=== PATIENT | female | born 1995 | race African-American/Black ===

== ENCOUNTER 2023-02-21 20:52 | Emergency (ER) | payer BC, SELFPAY ==
[2023-02-21 20:55] VITALS: BP 190/121; PULSE 110; RESP 18; TEMP 36.7; O2SAT 100
[2023-02-21 21:08] VITALS: BP 154/90
[2023-02-21 21:15] VITALS: RESP 18
--- NOTE | 2023-02-21 21:28 | ED.GENADUL_ITS ---
Discharge Plan Disposition Patient Disposition: Home Discharge Details Clinical Impression: Azotemia, Myalgia, Elevated CPK, Viral illness Primary Care Provider: Unknown,Unknown ED Provider: Isatu Byrne Discharge Instructions Instructions: Viral Syndrome (ED), Musculoskeletal Pain (ED) Additional Instructions: drink at least 8, 8oz glasses of water daily to clear your elevated cpk levels this can occur with viral illness, recommend recheck of your levels and creatinine in 24-48 hours with pcp tylenol as needed for pain your tick panel and blood cultures are pending and we will call you in the next 4-5 days if the results are positive Medical Decision Making This 27-year-old female presents with myalgias fevers, sore throat and intermittent headache Given vitals, age, history I did order extensive evaluation including blood cultures procalcitonin which was negative Tick panel is pending Interestingly patient has mild rhabdomyolysis, 652, will give 2 L of IV hydration and have patient push fluids at home with close outpatient reassessment, recommendation for recheck in 24 to 48 hours She is afebrile and nontoxic and very well in appearance on assessment. Laboratory markers are negative and urinalysis does not show evidence of acute abnormality, chest x-ray without pneumonia, I suspect rhabdo secondary to acute viral illness Creatinine of 1.4, no comparison, encouraged increased hydration, no meningismus, no rashes or lesions Requesting discharge home, nontoxic in appearance, return precautions reviewed and patient expressed understanding HPI General Date/Time Provider Initiated Documentation: 02/21/23 20:53 . HPI Narrative: This 27-year-old female with history of gastric bypass and cholecystectomy presents with report of intermittent fevers, Tmax of 100.4 over the course of the past 3 weeks. Daughter was sick with similar presentation and it did not e xtend for the same period of time. Denies cough. States she has myalgias. She has had some anorexia with out vomiting. Denies diarrhea. Had tick bites this summer but denies any recent tick bites. Denies any chest discomfort. Last fever was on per patient. Denies rashes or lesions or joint pain. Denies any antipyretics prior to arrival. Related Data Allergies Allergy/AdvReac Type Severity Reaction Status Date / Time No Known Allergies Allergy Unverified 02/21/23 21:04 General Stated Complaint: GenMedical LAURE: 3 PFSH All Active Problems (Updated 02/21/23 @ 23:02 by FAVIAN Thomson) Viral illness (Acute) Elevated CPK (Acute) Myalgia (Acute) Azotemia (Acute) Social History Smoking/Tobacco Use Status: Current-Occasional Smoking risk assessment performed?: Yes Alcohol Intake: never Substance use type: marijuana Do you feel safe at home: Yes Do you feel safe in your relationship?: Yes Course Vital Signs Vital signs: Vital Signs Temperature 36.7 C 02/21/23 20:55 Pulse 110 H 02/21/23 20:55 Respiratory Rate 18 02/21/23 20:55 Blood Pressure 190/121 H 02/21/23 20:55 Pulse Oximetry 100 02/21/23 20:55 Temperature 36.7 C 02/21/23 20:55 Temperature Source Oral 02/21/23 20:55 Pulse 110 H 02/21/23 20:55 Respiratory Rate 18 02/21/23 21:15 Respiratory Effort Normal 02/21/23 21:15 Respiratory Depth Normal 02/21/23 21:15 Respiratory Pattern Normal 02/21/23 21:15 Blood Pressure 154/90 H 02/21/23 21:08 Blood Pressure Position Sitting 02/21/23 20:55 Pulse Oximetry 100 02/21/23 20:55 Oxygen Delivery Method Room Air 02/21/23 20:55 Oxygen Flow Rate 0 02/21/23 20:55 Lab/Test Results Lab/Test Results: 02/21/23 21:25 Blood Blood Culture - Pending 02/21/23 21:25 Blood Blood Culture - Pending
[2023-02-21] MEDS: ACETAMINOPHEN 1,000 MG/100 ML BTL 400 MG IVPB (21:38)
[2023-02-21] MEDS: Lactated Ringers 1,000 ML 1000 ML IV (21:56)
[2023-02-21 21:59] LABS: Absolute Basophil Count 0.02 10^3/uL (0.0-0.2); Absolute Eosinophil Count 0.03 10^3/uL (0.0-0.7); Absolute Monocyte Count 0.41 10^3/uL (0.1-0.8); Basophils % 0.3; Eosinophils % 0.5; HCT 40.3 % (36.0-46.0); HGB 13.1 g/dL (11.2-15.7); Lymphocytes % 43.1; MCH 27.9 pg (27.0-33.0); MCHC 32.5 % (32.0-36.0); MCV 86 fL (80-95); MPV 8.4 fL (8.0-11.0); Monocytes % 6.5; Neutrophils % 49.6; Platelet Count 343 10^3/uL (130-400); RDW 12.2 % (11.7-14.6); RDW-SD 38.7 fL; WBC 6.26 10^3/uL (4.4-10.8)
[2023-02-21 22:01] LABS: ESR 8 mm/hr (0-20)
[2023-02-21 22:05] LABS: Mono Screening Negative (Negative)
[2023-02-21 22:21] LABS: ALT 29 U/L (14-59); AST 30 U/L (15-37); Albumin 5.1 g/dL (3.4-5.0); Alkaline Phosphatase 71 U/L (46-116); BUN 16 mg/dL (7-18); Bilirubin, Total 0.8 mg/dL (0.2-1.0); CREATININE 1.4 mg/dL (0.55-1.02); Calcium 10.1 mg/dL (8.5-10.1); Chloride 101 mmol/L (98-107); Creatine Kinase 652 U/L (26-192); Estimated GFR 52.88 (mL/min/1.73m2); Glucose 84 mg/dL (74-106); Potassium 3.5 mmol/L (3.5-5.1); Sodium 140 mmol/L (136-145); Total Protein 8.8 g/dL (6.4-8.2)
[2023-02-21 22:22] LABS: C-Reactive Protein < 0.05 mg/dL (0.0-0.3)
[2023-02-21 22:33] LABS: Bilirubin Negative (Negative); Blood Trace-intact (Negative); Clarity Clear (Clear); Glucose Negative (Negative); Ketones Trace mg/dL (Negative); Leukocyte Esterase Negative (Negative); Nitrite Negative (Negative); Urobilinogen 0.2 mg/dL (Up to 0.2)
--- NOTE | 2023-02-21 22:36 | DI.RAD_ITS ---
Exam(s) XR CHEST 2V PA LATERAL EXAM: XR CHEST 2V PA LATERAL CLINICAL HISTORY: fever TECHNIQUE: 2D digital imaging was performed of the chest. Two images were obtained. PA and lateral views were obtained. COMPARISON: No exams were available for comparison FINDINGS: MEDIASTINUM: Normal. HEART: Normal. PULMONARY VASCULATURE: Normal. LUNGS: The lungs are hyperinflated which may be related to strong inspiratory effort or possible parker ges of asthma/bronchiolitis. No focal consolidations are seen. PLEURAL SPACE: No pleural effusion or pneumothorax. BONE:Within normal limits for the patient's age. OTHER FINDINGS:There are surgical clips in the left upper quadrant of the abdomen. IMPRESSION: Hyperexpansion of the lungs. This may be due to a strong inspiratory effort versus changes of asthma or bronchiolitis. No pulmonary infiltrates. DATA REPOSITORY: RADIATION DOSE DELIVERED:
[2023-02-21 22:37] LABS: COVID-19 PCR Negative (Negative); Influenza A PCR Negative (Negative); Influenza B PCR Negative (Negative); RSV PCR Negative (Negative); Source NASOPHARYNX
[2023-02-21 22:42] LABS: WBC Negative HPF (0-5)
[2023-02-21 22:43] LABS: Bacteria Rare HPF (Negative); C & S Indicated? No; Casts Negative LPF (Negative); Crystals Negative HPF (Negative); Epithelial Cells Few HPF (Negative); Mucus Trace (Negative); RBC 0-2 HPF (0-2)
[2023-02-21 22:48] LABS: Procalcitonin < 0.1 ng/mL
[2023-02-21 22:55] LABS: TSH 2.36 uIU/mL (0.36-3.74)
--- NOTE | 2023-02-21 23:15 | DI.VRAD_ITS ---
PROCEDURE INFORMATION: Exam: XR Chest Exam date and time: 02/21/2023 10:33 PM Age: 27 years old Clinical indication: Other: Fever TECHNIQUE: Imaging protocol: Radiologic exam of the chest. Views: 2 views. COMPARISON: No relevant prior studies available. FINDINGS: Lungs: Question mild generalized hyperexpansion and diaphragmatic flattening which may relate to strong inspiratory effort or possibly mild changes of asthma/bronchiolitis. Pulmonary vasculature grossly normal. No gross pulmonary infiltrates or edema pattern. Pleural spaces: No pleural effusion. Appearance of bilateral costophrenic angle blunting is felt to be related to hyperexpansion. No pneumothorax. Heart/Mediastinum: Heart size normal. No tracheal/mediastinal shift. Bones/joints: No acute osseous abnormalities are identified. Intraperitoneal space: Left upper quadrant surgical clips in the abdomen. IMPRESSION: Nonspecific hyperexpansion, strong inspiratory effort versus changes of asthma/bronchiolitis. No gross pulmonary infiltrates. Dictated and Authenticated by: Chad Luu MD. Ordering:DEREJE Lunsford MD
[2023-02-21 23:35] VITALS: BP 145/105; PULSE 104; RESP 14; O2SAT 100
[2023-02-23 11:38] LABS: Lyme Ab w Rflx to Lyme Confirm Negative (Negative)
[2023-02-25 00:07] LABS: Anaplasma phagocytophilum Negative (Negative); B. miyamotoi PCR Negative (Negative); Babesia divergens/MO-1 Negative (Negative); Babesia duncani Negative (Negative); Babesia microti Negative (Negative); Ehrlichia chaffeensis Negative (Negative); Ehrlichia ewingii/canis Negative (Negative); Ehrlichia muris eauclairensis Negative (Negative)
== END 2023-02-21 23:37 | disposition home or self-care (01) ==
PROVIDERS: Emergency Provider Physician Assistant; PCP Physician Assistant
DX: R51.9 Headache, unspecified; R79.89 Other specified abnormal findings of blood chemistry; M79.10 Myalgia, unspecified site; R94.4 Abnormal results of kidney function studies; Z98.84 Bariatric surgery status; B34.9 Viral infection, unspecified; Z90.49 Acquired absence of other specified parts of digestive tract; M62.82 Rhabdomyolysis
CPT/HCPCS: 36415; 80053; 81025; 82550; 84145; 85652; 87040; 87637; 87798; 87880; 96365; 96366; 99284; 71046; 81003; 81015; 83735; 84443; 85025; 86140; 86308; 86618; J0131

== ENCOUNTER 2023-05-10 14:24 | Outpatient (REF) | payer BC, SELFPAY | END 2023-05-10 14:25 | disposition home or self-care (01) | LOC: LBN 14:24 | PROVIDERS: PCP Nurse Practitioner Family; Visit Provider Nurse Practitioner Family | DX: R30.0 Dysuria (principal); N89.8 Other specified noninflammatory disorders of vagina | CPT/HCPCS: 87480; 87510; 87660 ==

== ENCOUNTER 2023-06-20 13:49 | Outpatient (REF) | payer BC, SELFPAY | END 2023-06-20 13:50 | disposition home or self-care (01) | LOC: LBN 13:49 | PROVIDERS: Visit Provider Physician Assistant | DX: J02.9 Acute pharyngitis, unspecified (principal) | CPT/HCPCS: 87070 ==

== ENCOUNTER 2023-06-27 05:01 | Outpatient (CLI) | payer BC, SELFPAY ==
[2023-06-27 15:07] LABS: Panorama Kit Sent via Fed Ex
[2023-06-27 15:24] LABS: Abs Immature Grans 0.02 10^3/uL (0.0-0.06); Absolute Basophil Count 0.01 10^3/uL (0.0-0.2); Absolute Eosinophil Count 0.03 10^3/uL (0.0-0.7); Absolute Lymphocyte Count 2.15 10^3/uL (1.2-3.4); Absolute Monocyte Count 0.48 10^3/uL (0.1-0.8); Absolute Neutrophil Count 4.77 10^3/uL (1.2-6.7); Basophils % 0.1; Eosinophils % 0.4; HCT 34.7 % (36.0-46.0); HGB 11.5 g/dL (11.2-15.7); Immature Grans % 0.3; Lymphocytes % 28.8; MCH 27.7 pg (27.0-33.0); MCHC 33.1 % (32.0-36.0); MCV 84 fL (80-95); MPV 8.3 fL (8.0-11.0); Monocytes % 6.4; Platelet Count 362 10^3/uL (130-400); RBC 4.15 10^6/uL (3.93-5.22); RDW 11.8 % (11.7-14.6); RDW-SD 36.1 fL; WBC 7.46 10^3/uL (4.4-10.8)
[2023-06-27 16:23] LABS: ALT 43 U/L (14-59); AST 29 U/L (15-37); Albumin 3.3 g/dL (3.4-5.0); Alkaline Phosphatase 57 U/L (46-116); Anion Gap 7.8 mmol/L (3-11); BUN 13 mg/dL (7-18); Bilirubin, Total 0.7 mg/dL (0.2-1.0); CO2 28.2 mmol/L (21.0-32.0); CREATININE 0.7 mg/dL (0.55-1.02); Calcium 9.1 mg/dL (8.5-10.1); Chloride 101 mmol/L (98-107); Estimated GFR 121.49 (mL/min/1.73m2); Glucose 80 mg/dL (74-106); Potassium 4.1 mmol/L (3.5-5.1); Sodium 137 mmol/L (136-145); Total Protein 6.9 g/dL (6.4-8.2)
[2023-06-28 09:09] LABS: Hepatitis B Surface Ag Negative (Negative)
[2023-06-28 09:56] LABS: HIV-1/2 Ag & Ab Screen Negative (Negative)
[2023-06-28 10:10] LABS: Hepatitis C Ab w Rflx HCV PCR Negative (Negative)
[2023-06-28 11:07] LABS: Rubella IgG Ab (UVM) Positive (See Note); Varicella IgG Antibody Positive (See Note)
[2023-06-29 14:21] LABS: Syphilis IgG w/Reflex Nonreactive (Nonreactive)
[2023-07-02 00:21] LABS: Specimen WB Whole Blood
[2023-07-07 14:55] LABS: Result Summary NEGATIVE; Specimen WB Whole Blood
== END 2023-06-27 05:02 | disposition home or self-care (01) ==
LOC: LBO 05:01
PROVIDERS: Visit Provider Advanced Practice Midwife
DX: Z34.91 Encounter for supervision of normal pregnancy, unspecified, first trimester (principal); Z98.84 Bariatric surgery status
CPT/HCPCS: 36415; 80053; 81220; 81222; 81329; 86787; 86803; 86850; 86900; 86901; 87340; 87389; 85025; 86762; 86780

== ENCOUNTER 2023-06-27 14:40 | Outpatient (REF) | payer BC, SELFPAY ==
--- NOTE | 2023-06-27 14:30 | PAPFT_PTH ---
PATIENT: Yvette Self LOC: [facility] U#:[id number] AGE/SX: 27/F ROOM: RE06/27/[address]: Martha Mims : 1995 BED: DIS: 06/27/2023 SPEC #: [id number] RECD: 06/27/23 18:21 STATUS: JARED REQ #: [id number] BONG: 06/27/23 14:[address]: Martha Mims [facility] Cytology RECD BY: Isatu Pelayo ENTERED: 06/27/23 18:21 SP TYPE: PAPFT OT DR: Unknown,Unknown Tissues: 1 - CX/ENDOCX FOR PAP SMEARS Procedures: PAP THIN PREP/UVM Screening Comments: [id number]
[2023-06-29 14:36] LABS: Chlamydia Result Negative (Negative); GC Result Negative (Negative)
== END 2023-06-27 14:41 | disposition home or self-care (01) ==
LOC: LBN 14:40
PROVIDERS: Visit Provider Advanced Practice Midwife
DX: Z34.91 Encounter for supervision of normal pregnancy, unspecified, first trimester (principal); Z12.4 Encounter for screening for malignant neoplasm of cervix
CPT/HCPCS: 87491; 87591; 88142; 87086

== ENCOUNTER 2023-07-25 15:19 | Outpatient (CLI) | payer BC, SELFPAY ==
[2023-07-25 14:22] LABS: HCT 35.9 % (36.0-46.0); HGB 11.4 g/dL (11.2-15.7); MCH 27.6 pg (27.0-33.0); MCHC 31.8 % (32.0-36.0); MCV 87 fL (80-95); MPV 8.8 fL (8.0-11.0); Platelet Count 284 10^3/uL (130-400); RBC 4.13 10^6/uL (3.93-5.22); RDW 12.3 % (11.7-14.6); RDW-SD 39.8 fL; WBC 6.59 10^3/uL (4.4-10.8)
[2023-07-25 15:03] LABS: Iron 146 ug/dL (50-170); Total Iron Binding Capacity 364 ug/dL (250-450)
[2023-07-25 15:15] LABS: Calcium 8.6 mg/dL (8.5-10.1); Ferritin 35 ng/mL (8-252)
[2023-07-25 15:27] LABS: Vitamin D 25 Total 33.4 ng/mL (30-100)
== END 2023-07-25 15:20 | disposition home or self-care (01) ==
PROVIDERS: Visit Provider Advanced Practice Midwife
DX: Z98.84 Bariatric surgery status (principal)
CPT/HCPCS: 36415; 82306; 85027; 82310; 82728; 83540; 83550

== ENCOUNTER 2023-10-18 02:49 | Outpatient (CLI) | payer BC, SELFPAY ==
[2023-10-18 11:14] LABS: HCT 31.8 % (36.0-46.0); MCH 27.1 pg (27.0-33.0); MCHC 31.4 % (32.0-36.0); MCV 86 fL (80-95); Platelet Count 264 10^3/uL (130-400); RBC 3.69 10^6/uL (3.93-5.22); RDW 11.9 % (11.7-14.6); RDW-SD 37.3 fL
[2023-10-18 12:08] LABS: Glucose,1 Hr (Glucola) 57 mg/dL (80-140)
[2023-10-18 12:12] LABS: Iron 79 ug/dL (50-170); Total Iron Binding Capacity 490 ug/dL (250-450)
[2023-10-18 12:25] LABS: Calcium 8.8 mg/dL (8.5-10.1); Ferritin 16 ng/mL (8-252)
== END 2023-10-18 02:50 | disposition home or self-care (01) ==
LOC: LBO 02:49
PROVIDERS: PCP Physician Assistant; Visit Provider Advanced Practice Midwife
DX: Z98.84 Bariatric surgery status (principal); Z34.90 Encounter for supervision of normal pregnancy, unspecified, unspecified trimester; D57.3 Sickle-cell trait
CPT/HCPCS: 36415; 82950; 85027; 82310; 82728; 83540; 83550

== ENCOUNTER → 2023-11-14 01:07 | Outpatient (CLI) | payer BC, SELFPAY ==
--- NOTE | 2023-11-14 07:22 | DI.US_ITS ---
Exam(s) US OB ROQUE WEIGHT EXAM: US OB ROQUE WEIGHT CLINICAL HISTORY: growth and ROQUE,H/O GASTRIC BYPASS,Z98.84. TECHNIQUE: Transabdominal obstetrical ultrasound was performed. COMPARISON: US US OB 2-3 TRIMESTER from 08/22/2023 FINDINGS: There is a single viable intrauterine gestation with cardiac activity identified-150 bpm The fetus is presently in cephalic position . Amniotic fluid: There is a normal amount of amniotic fluid with an ROQUE of 16.4cm. Placental location: The placenta is anterior grade 2,with no evidence of placenta previa. Dating parameters place this at approximately 31 weeks gestational age, implying ESTHELA of . BPD measures 29 weeks and 5 days HC measures 32 weeks and 0 days AC measures 31 weeks and 3 days FL measures 30 weeks and 4 days Estimated weight is 1687 gm-3 pounds 12 ounces Fetus is at the 39th percentile on the Hadlock scale. IMPRESSION:: Viable 3rd trimester gestation, as described above. DATA REPOSITORY:
== END ==
PROVIDERS: PCP Physician Assistant; Visit Provider Advanced Practice Midwife
DX: Z98.84 Bariatric surgery status (principal); Z34.90 Encounter for supervision of normal pregnancy, unspecified, unspecified trimester
CPT/HCPCS: 76816

== ENCOUNTER 2023-11-15 01:21 | Outpatient (RCR) | payer BC, SELFPAY ==
[2023-10-25] MEDS: IRON SUCROSE COMPLEX 200 MG in Normal Saline 100 ML 440 MG IVPB (11:02)
[2023-10-25] MEDS: Normal Saline Flush 10 ML SYR IVP (11:03)
[2023-11-01 11:29] LABS: HCT 31.1 % (36.0-46.0); HGB 10.1 g/dL (11.2-15.7); MCH 27.2 pg (27.0-33.0); MCHC 32.5 % (32.0-36.0); MCV 84 fL (80-95); MPV 9.2 fL (8.0-11.0); Platelet Count 278 10^3/uL (130-400); RBC 3.72 10^6/uL (3.93-5.22); RDW 12.7 % (11.7-14.6); RDW-SD 38.4 fL; WBC 8.06 10^3/uL (4.4-10.8)
[2023-11-01] MEDS: IRON SUCROSE COMPLEX 200 MG in Normal Saline 100 ML 440 MG IVPB (11:45)
[2023-11-01] MEDS: Normal Saline Flush 10 ML SYR IVP (11:46)
[2023-11-08 11:19] LABS: HCT 32.8 % (36.0-46.0); HGB 10.7 g/dL (11.2-15.7); MCH 27.3 pg (27.0-33.0); MCHC 32.6 % (32.0-36.0); MCV 84 fL (80-95); MPV 8.8 fL (8.0-11.0); Platelet Count 245 10^3/uL (130-400); RBC 3.92 10^6/uL (3.93-5.22); RDW-SD 39.3 fL; WBC 8.78 10^3/uL (4.4-10.8)
[2023-11-08] MEDS: Normal Saline Flush 10 ML SYR IVP (11:38)
[2023-11-08] MEDS: IRON SUCROSE COMPLEX 200 MG in Normal Saline 100 ML 440 MG IVPB (11:38)
[2023-11-15 12:50] LABS: HGB 10.5 g/dL (11.2-15.7); MCH 27.2 pg (27.0-33.0); MCHC 31.8 % (32.0-36.0); MCV 86 fL (80-95); MPV 8.9 fL (8.0-11.0); Platelet Count 210 10^3/uL (130-400); RBC 3.86 10^6/uL (3.93-5.22); RDW 13.2 % (11.7-14.6); WBC 7.27 10^3/uL (4.4-10.8)
[2023-11-15] MEDS: Normal Saline Flush 10 ML SYR IVP (14:11)
[2023-11-15] MEDS: IRON SUCROSE COMPLEX 200 MG in Normal Saline 100 ML 440 MG IVPB (14:11)
== END 2023-11-23 23:59 | disposition home or self-care (01) ==
LOC: INF 01:21
PROVIDERS: PCP Physician Assistant; Visit Provider Advanced Practice Midwife
DX: Z34.90 Encounter for supervision of normal pregnancy, unspecified, unspecified trimester (principal); Z98.84 Bariatric surgery status
CPT/HCPCS: 36415; 85027; 96365; J1756

== ENCOUNTER 2023-12-20 11:44 | Outpatient (REF) | payer BC, SELFPAY | END 2023-12-20 11:45 | disposition home or self-care (01) | LOC: LBN 11:44 | PROVIDERS: PCP Physician Assistant; Visit Provider Obstetrics & Gynecology | DX: Z34.93 Encounter for supervision of normal pregnancy, unspecified, third trimester (principal) | CPT/HCPCS: 87081 ==

== ENCOUNTER 2024-01-17 10:39 | Outpatient (CLI) | payer BC, SELFPAY ==
[2024-01-17 12:01] VITALS: BP 120/84; PULSE 77; TEMP 36.9
[2024-01-17 12:24] VITALS: BP 120/84; PULSE 77
[2024-01-17 13:08] LABS: ROM Plus Negative
--- NOTE | 2024-01-17 15:37 | W.OBNST ---
Date of service: 01/17/24 Time of Service: 14:00 NST Evaluation Reason for NST Reasons for Nonstress Test: FALSE LABOR and OTHER, SEE COMMENT Reason for NST Other: Question ROM Gestational Age Gestational Age in Weeks and Days: 40 Weeks and 1Days Test and Monitor Explained Test/Monitor Explained: Test Explained and Monitor Explained Vital Signs Blood Pressure: 120/84 Pulse: 77 Temperature: 98.4 F NST Information Date on Monitor: 01/17/24 Time on Monitor: 12:05 Date off Monitor: 01/17/24 Time off Monitor: 14:20 Total Time on Monitor: 135 NST Interventions: PO Hydration Contraction Frequency: 3-9min NST Evaluation Patient States Movement: Present FHR Baseline: 130 Variability: Moderate 6-25 bpm Accelerations: 15x15 Decelerations: Early, Late and Variable NST Results: Reactive Note Ultrasound Done: N/A. NST Note Note: Pt with a small amount of leaking x1. She did not need to put a panty liner on. Not continuing. She says the ctxs she having are the same she's been having for over a week. NST Reviewed and Verified by: Asia Soriano
[2024-01-17 15:39] VITALS: BP 120/84; PULSE 77; TEMP 36.9
== END 2024-01-17 14:25 ==
LOC: BCD 10:40 → OBS 10:49
PROVIDERS: PCP Physician Assistant; Visit Provider Obstetrics & Gynecology
DX: O47.1 False labor at or after 37 completed weeks of gestation (principal); Z3A.40 40 weeks gestation of pregnancy
CPT/HCPCS: 59025; 84112

== ENCOUNTER 2024-01-18 10:03 | Outpatient (CLI) | payer BC, SELFPAY ==
[2024-01-18 13:13] VITALS: BP 119/81; PULSE 94
[2024-01-18 13:43] VITALS: BP 119/81; PULSE 94; TEMP 36.8
--- NOTE | 2024-01-18 14:03 | W.OBNST ---
Date of service: 01/18/24 Time of Service: 13:30 NST Evaluation Reason for NST Reasons for Nonstress Test: FALSE LABOR Gestational Age Gestational Age in Weeks and Days: 40 Weeks and 2Days Test and Monitor Explained Test/Monitor Explained: Test Explained, Monitor Explained and Patient Verbalized Understanding Vital Signs Blood Pressure: 119/81 Pulse: 94 Temperature: 98.2 F Urine Results Urine Protein: Negative Urine Ketones: Negative Urine Glucose: Negative Urine Blood: Negative NST Information Date on Monitor: 01/18/24 Time on Monitor: 13:12 Date off Monitor: 01/18/24 Time off Monitor: 13:42 Total Time on Monitor: 30 NST Interventions: PO Hydration and Notify Provider Contraction Frequency: Occasional NST Evaluation Patient States Movement: Present FHR Baseline: 135 Variability: Moderate 6-25 bpm Accelerations: 15x15 Decelerations: None NST Results: Reactive Note Ultrasound Done: N/A. NST Note Note: Pt is feeling primarily crampy but opted for a cervical check due to a small amount of spotting when she wiped last night. She was able to sleep through the night ok. She still has intermittent contractions but not increasing or stronger then before. Cx:<1/?70%/-3/soft/posterior - did not push for the internal os due to pt discomfort and posterior location of the cervix. Minimal blood on exam glove. NST Reviewed and Verified by: Asia Soriano
[2024-01-18 14:05] VITALS: BP 119/81; PULSE 94; TEMP 36.8
== END 2024-01-18 13:48 ==
LOC: BCD 10:12 → OBS 10:23
PROVIDERS: PCP Physician Assistant; Visit Provider Obstetrics & Gynecology
DX: O47.1 False labor at or after 37 completed weeks of gestation (principal); Z3A.40 40 weeks gestation of pregnancy
CPT/HCPCS: 59025

== ENCOUNTER 2024-01-20 07:18 | Outpatient (CLI) | payer BC, SELFPAY ==
[2024-01-20 14:10] VITALS: BP 113/78; PULSE 93; TEMP 37.3
[2024-01-20 14:28] VITALS: BP 113/78; PULSE 93
[2024-02-15 09:10] VITALS: BP 113/78; PULSE 93; TEMP 37.3
--- NOTE | 2024-02-15 09:10 | W.OBNST ---
Date of service: 01/20/24 Time of Service: 09:10 NST Evaluation Reason for NST Reasons for Nonstress Test: POSTDATES Gestational Age Gestational Age in Weeks and Days: 40 Weeks and 5Days Test and Monitor Explained Test/Monitor Explained: Test Explained, Monitor Explained and Patient Verbalized Understanding Vital Signs Blood Pressure: 113/78 Pulse: 93 Temperature: 99.1 F NST Information Date on Monitor: 01/20/24 Time on Monitor: 14:05 Date off Monitor: 01/20/24 Time off Monitor: 14:33 Total Time on Monitor: 28 NST Interventions: PO Hydration NST Evaluation Patient States Movement: Present FHR Baseline: 135 Variability: Moderate 6-25 bpm Accelerations: 15x15 Decelerations: None NST Results: Reactive Note Ultrasound Done: N/A. NST Note Note: Category 1, reactive NST NST Reviewed and Verified by: Ranjana Rothman
== END 2024-01-20 14:44 | disposition other institution (70) ==
LOC: BCD 07:19 → OBS 14:08
PROVIDERS: PCP Physician Assistant; Visit Provider Obstetrics & Gynecology
DX: O48.0 Post-term pregnancy (principal); Z3A.40 40 weeks gestation of pregnancy
CPT/HCPCS: 59025

== ENCOUNTER 2024-01-21 01:14 | Inpatient (IN) | payer BC, SELFPAY ==
[2024-01-21] VITALS (22 sets, daily range): BP systolic 95–122; BP diastolic 69–90; PULSE 51–100; RESP 16–18; TEMP 36.7–37; O2SAT 99–100; BMI 34.9
--- NOTE | 2024-01-21 01:15 | W.PM.OBHPL1 ---
Date of service: 01/21/24 Time of Service: 01:18 Assessment and Plan Assessment and plan (1) : Status: Acute Assessment and plan: at 40 weeks and 4 days with early labor. Previous delivery, low transverse. Careful assessment of heart rate tracing, and labor for progression. Will IV hydrate at this point, reevaluate heart rate tracing, and cervical exam as necessary. Strong possibility of delivery if signs of intolerance of labor. (2) History of delivery, currently : Status: Acute (3) History of gastric bypass: Status: Acute (4) Sickle cell trait: Status: Acute OB-HPI Labor/Delivery History of Present Illness Reason for Visit: Possible Labor Chief Complaint: Uterine Contractions. ESTHELA Calculator Estimated Delivery Date Method Current WG Current Estimate 01/16/24 LMP (Certain) 40w 5d Other Estimates 01/16/24 Ultrasound #1 40w 5d Comments: Patient seen and evaluated for increasing intensity of uterine contractions now approximately every 5 to 6 minutes. She reports that these have been progressively stronger throughout the day. When she wiped she does have some blood-tinged mucus. Baby's been moving and active. She did have a nonstress test earlier today. She has a heart rate baseline of 150 with variable to subtle late decelerations with uterine contractions and a cervix that is closed, 50%, soft, and posterior. These findings were discussed with the patient. She will have IV hydration and reevaluate heart rate tracing. If no significant changes, or no active labor, delivery may be warranted. Her record and previous section record were discussed and reviewed. History of Present Expected Delivery Route/Plan TOLAC - FOB/ - Kurt Self (2 daughters, one w/webbed toes, first baby together) BB will circ Specific Issues/Plan 1. Carrier of sickle cell carrier trait 2. Hx of laparoscopic bariatric surgery (Rouen-Y) denies frequent issues with dumping; prefers 1 hr glucola @ 28 wks 2a. CBC, Fe, Ferritin, Ca+, Vit D level each trimester; Getting weekly iron transfusions 2b. 2nd trimester 07/24 all nml, Vit D 33.4 (will begin 2000u/day supplement) 2c. 3rd trimester -GTT-57, US at 31 weeks EFW 39 %ile, ROQUE 16.4 3. Previous ; would like TOLAC if spontaneous labor. Declines tubal 3a. Plan 30 wk MD appt: done 10/31 - consent [place] [facility] [place] [facility] [place] if no spontaneous labor. 3b. Request delivery record/op report from [facility] [place]: reviewed 10/31: LTCS for failed induction - pt never in active labor. 4. SMA & CF carrier screen negative; cfDNA low risk x5 male, declines AFP 5. Considering Mirena 6 weeks PP Informed Consent Informed Consent: Vaginal after (Patient still hopes for a vaginal after delivery) Review of Systems All systems reviewed & are unremarkable except as noted in HPI and below Constitutional Constitutional: Reports system reviewed and no additional complaints, except as documented ENT Ears, Nose, Mouth, and Throat: Reports system reviewed and no additional complaints, except as documented Cardiovascular Cardiovascular: Reports system reviewed and no additional complaints, except as documented Respiratory Respiratory: Reports system reviewed and no additional complaints, except as documented Gastrointestinal Gastrointestinal: Reports system reviewed and no additional complaints, except as documented Genitourinary Genitourinary: Reports as per HPI (Painful regular contractions approximately every 5 to 6 minutes) Musculoskeletal Musculoskeletal: Reports system reviewed and no additional complaints, except as documented Psychiatric Psychiatric: Reports system reviewed and no additional complaints, except as documented PFSH All Active Problems (Updated 10/19/23 @ 15:17 by Denise Parr) History of gastric bypass (Acute) History of delivery, currently (Acute) Sickle cell trait (Acute) (Acute) Surgical History (Updated 10/19/23 @ 15:17 by Denise Parr) H/O right knee surgery H/O dilation and curettage Bariatric surgery status Previous section Family History (System 10/19/23 @ 15:17 by Denise Parr) Father Diabetes adopted Social History (System 10/19/23 @ 15:17 by Denise Parr) Smoking/Tobacco Use Status: Current-Occasional Smoking risk assessment performed?: Yes Alcohol Intake: never Drug use: Never Substance use type: marijuana Adopted: Yes (limited knowledge of family history) Do you feel safe at home: Yes Do you feel safe in your relationship?: Yes History History 3 Para 1 Hx # Term Pregnancies 1 Multiple births 0 Hx # Pregnancies 0 Ectopic pregnancies 0 AB induced 0 Hx Number of Living Children 1 AB spontaneous 1 Past Pregnancies Del. Date GA/Weeks # Preg Succ Route Wgt Sex Labor Lgth Anesthesia Location Prov Complic 11/26/15 40 No Yes 8 lb 5 oz Female [facility] [place] Delivery Date: 11/26/15 Last Updated by: Martha Mims CNM IOL due to post dates, malposition at 9-10 cms. tongue- tied Meds Allergies and Home Medications Allergies Allergy/AdvReac Type Severity Reaction Status Date / Time No Known Allergies Allergy Unverified 01/16/24 13:30 Home Medications ?Medication ?Instructions ?Recorded ?Confirmed ?Type calcium carbonate (Calcium 600) 500 mg PO BID 06/13/23 01/09/24 History multivitamin (Daily Multi-Vitamin 1 tab PO DAILY 06/13/23 01/09/24 History tablet) vit 168-iron 27 mg-folic cap PO 06/13/23 01/09/24 History acid 800 mcg-omega3 235 mg capsule (One-A-Day -1) cholecalciferol (vitamin D3) 50 50 mcg PO DAILY #60 caps 08/22/23 01/09/24 Rx mcg (2,000 unit) capsule Exam Physical Exam Vital Signs Reviewed: Yes Constitutional Constitutional: no acute distress (Somewhat worried) Detailed Labor and Delivery Exam Dilation: 0 Effacement (%): 50 station: -3 Cervix position: posterior Consistency: medium Freeman Score: Cervical Points Exam 0 1 2 3 Dilation Closed 1-2cm 3-4 cm 5-6cm Effacement 0-30% 40-50% 60-70% 80% Consistency Firm Medium Soft Station -3 -2 -1,0 +1,+2 Position Posterior Mid Anterior FREEMAN Score(Cervical Ripeness Score): 4 Contraction Frequency(min): 6 Contraction Duration(sec): 60 Contraction Intensity: Mild/Moderate Fetus A Heart Rate Baseline: 150 Monitor Decelerations: Late and Variable Variability: Moderate (6-25 BPM) Est. Weight: 7 HEENT Exam HEENT Exam: Normal Chest/Brest/Axilla Exam Chest Exam: Normal Respiratory Exam Respiratory Exam: Normal Cardiovascular Exam Cardiovascular Exam: Normal Abdominal Exam Abdominal Exam: Normal Detailed Abdominal Exam Comments: Soft, nontender. Previous surgical scar present. Exam Exam: Normal Extremities Exam Extremities Exam: Normal Back/Spine/Pelvis Exam Pelvis Adequate: Yes Neurological Exam Neurological Exam: Normal Psychiatric Exam Psychiatric Exam: Normal Risk Assessment Risk for Shoulder Dystocia Historical/Initial OB: NEGATIVE FOR: Pelvic Abnormality, Pre- BMI>30, Previous Shoulder Dystocia or Previous Macrosomia Risk for Pre-Eclampsia Yes, if one or more: NEGATIVE FOR: Hx Pre-E/Gest HTN, Chronic HTN, Multiple Gestation, Pre-gestational DM, Renal Disease, Systemic Lupus or APA Syndrome Yes, if 2 or more: POSITIVE FOR: ethinicty; NEGATIVE FOR: Nulliparity, Age>= 35 yrs, >10yr btwn pregnancies, BMI>30, Mother/Sister w/ Pre-E or Previous IUGR Risk for Post- Hemorrhage Initial: NEGATIVE FOR: Multiple Gestation, Previous PPH, Known Clotting Deficiency, Grand Multiparity or Anticoagulation Risks Reviewed Risks Reviewed Upon Admission: Yes
[2024-01-21 01:51] LABS: HCT 35.2 % (36.0-46.0); HGB 11.8 g/dL (11.2-15.7); MCH 27.6 pg (27.0-33.0); MCHC 33.5 % (32.0-36.0); MCV 82 fL (80-95); MPV 8.9 fL (8.0-11.0); Platelet Count 221 10^3/uL (130-400); RBC 4.27 10^6/uL (3.93-5.22); RDW 12.8 % (11.7-14.6); RDW-SD 38.6 fL; WBC 9.24 10^3/uL (4.4-10.8)
--- NOTE | 2024-01-21 03:14 | W.PM.OBNL1 ---
Date of service: 01/21/24 Time of Service: 03:14 Informed Consent Informed Consent: Section Delivery and Vaginal after (Patient still hopes for a vaginal after delivery) Contractions Contraction Frequency(min): 3 Contraction Duration(sec): 30 Fetus A Heart Rate Baseline: 140 Variability: Moderate (6-25 BPM) Categories: Category II FHR Rhythm: Regular Decelerations: Early and Late Assessment and Plan Assessment and plan (1) : Status: Acute (2) History of delivery, currently : Status: Acute (3) History of gastric bypass: Status: Acute (4) Abnormal labor: Status: Acute Assessment and plan: rgeular contractions with category II strip, remote from delivery in the face of prior section. OR crew notified for repeat delivery. Risks, benefits and alternatives discussed with patient and . Shared decision making for consent for delivery Objective Abnormal lab results 01/21/24 Range/Units 01:22 Hct 35.2 L (36.0-46.0) % Temp Pulse Resp BP 98.6 F 100 H 16 122/87 01/21/24 01:37 01/21/24 01:37 01/21/24 01:37 01/21/24 01:37 Laboratory Results WBC 9.24 10^3/uL (4.4-10.8) 01/21/24 01:22 RBC 4.27 10^6/uL (3.93-5.22) 01/21/24 01:22 Hgb 11.8 g/dL (11.2-15.7) 01/21/24 01:22 Hct 35.2 % (36.0-46.0) L 01/21/24 01:22 MCV 82 fL (80-95) 01/21/24 01:22 MCH 27.6 pg (27.0-33.0) 01/21/24 01:22 MCHC 33.5 % (32.0-36.0) 01/21/24 01:22 RDW 12.8 % (11.7-14.6) 01/21/24 01:22 Plt Count 221 10^3/uL (130-400) 01/21/24 01:22 MPV 8.9 fL (8.0-11.0) 01/21/24 01:22 ABO/Rh O Positive 01/21/24 01:22 Antibody Screen NEGATIVE 01/21/24 01:22 Subjective Interval history since last seen: More frequent contractions. Good variability, continued subtle early-late decelerations with slow return to baseline. No increase in contraction intensity. Declined cervical exam. Discussed continued watchful waiting versus delivery. Informed consent obtained Results Hemoglobin/Hematocrit: Hgb 11.8 g/dL (11.2-15.7) 01/21/24 01:22 Hct 35.2 % (36.0-46.0) L 01/21/24 01:22 Abnormal Lab Findings: Abnormal Labs 01/21/24 01:22 Hct 35.2 L
[2024-01-21] MEDS: AZITHROMYCIN 500 MG in Normal Saline 250 ML 250 MG IVPB (03:32)
--- NOTE | 2024-01-21 03:37 | ANES.PREOP_ITS ---
General Info Date of Service Date Performed: 01/21/24 Height: 5 ft 3 in Weight: 89.358 kg Body Mass Index (BMI): 34.9 Surgical Procedure: Operation Date: 01/21/24 03:45 Proposed Procedure Side Surgeon p Section Ranjana Rothman DO Meds Allergies and Home Medications Allergies Allergy/AdvReac Type Severity Reaction Status Date / Time No Known Allergies Allergy Unverified 01/16/24 13:30 Home Medication ?Medication ?Instructions ?Recorded calcium carbonate (Calcium 600) 500 mg PO BID 06/13/23 multivitamin (Daily Multi-Vitamin 1 tab PO DAILY 06/13/23 tablet) vit 168-iron 27 mg-folic cap PO 06/13/23 acid 800 mcg-omega3 235 mg capsule (One-A-Day -1) cholecalciferol (vitamin D3) 50 50 mcg PO DAILY #60 caps 08/22/23 mcg (2,000 unit) capsule Current Visit Medications: Current Medications Generic Name Dose Route Start Last Admin Trade Name Freq PRN Reason Stop Dose Admin Citric Acid/Sodium Citrate 30 ml 01/21/24 04:00 Sodium Citrate 30 Ml Cup PO PREOP MERY Cefazolin Sodium/Dextrose 2 gm in 50 mls @ 100 mls/hr 01/21/24 03:15 Ancef Duplex IVPB PREOP MERY Azithromycin 500 mg/ Sodium 250 mls @ 250 mls/hr 01/21/24 03:15 01/21/24 03:32 Chloride IVPB 250 mls/hr PREOP MERY Administration Ringer's Solution 1,000 mls @ 200 mls/hr 01/21/24 03:15 IV INFUSION MERY IV Miscellaneous Supplies 1 each 01/21/24 01:15 Iv Access IV DIRECTED MERY IV Miscellaneous Supplies 1 each 01/21/24 03:15 Iv Access IV DIRECTED MERY Sodium Chloride 0 ml 01/21/24 01:14 Normal Saline Flush 10 Ml Syr IVP PRN PRN Sodium Chloride 0 ml 01/21/24 08:30 Normal Saline Flush 10 Ml Syr IVP BID MERY Sodium Chloride 0 ml 01/21/24 01:14 Normal Saline 10 Ml Vial IJ DIRECTED PRN PFSH Active Problems Active Problems: Problem Status Onset Code Abnormal labor Acute O62.9 History of gastric bypass Acute Z98.84 History of delivery, currently Acute O34.219 Sickle cell trait Acute D57.3 Acute Z34.90 Surgical History Surgical History (Updated 10/19/23 @ 15:17 by Denise Parr) H/O right knee surgery H/O dilation and curettage Bariatric surgery status Previous section Tobacco Smoking/Tobacco Use Status: Current-Occasional Alcohol Alcohol Intake: never Substance Use Substance use: Never Substance use type: marijuana Prental History History 2 3 Para 1 Hx # Term Pregnancies 1 Multiple births 0 Hx # Pregnancies 0 Ectopic pregnancies 0 AB induced 0 Hx Number of Living Children 1 AB spontaneous 1 Past Pregnancies Del. Date GA/Weeks # Preg Succ Route Wgt Sex Labor Lgth Anesth esia Location Prov Complic 11/26/15 40 No Yes 3770.487 g Female [facility] Delivery Date: 11/26/15 Last Updated by: Martha Mims CNM IOL due to post dates, malposition at 9-10 cms. tongue- tied Vital Signs and Lab Results Vital Signs Most Recent Vital Signs in EMR: Most Recent Vital Signs Temp Pulse Resp BP 37 C 100 H 16 122/87 01/21/24 01:37 01/21/24 01:37 01/21/24 01:37 01/21/24 01:37 Lab Results 01/21/24 01:22 Blood Type / Crossmatch: 2 Antibody Screen NEGATIVE 01/21/24 Complete Blood Count: 2 White Blood Count 9.24 10^3/uL (4.4-10.8) 01/21/24 01:22 Red Blood Count 4.27 10^6/uL (3.93-5.22) 01/21/24 01:22 Hemoglobin 11.8 g/dL (11.2-15.7) 01/21/24 01:22 Hematocrit 35.2 % (36.0-46.0) L 01/21/24 01:22 Platelet Count 221 10^3/uL (130-400) 01/21/24 01:22 Complete Metabolic Panel: 2 No Data to Display Liver Function Panel: 2 No Data to Display Coagulation Panel: 2 No Data to Display Cardiac Panel: 2 No Data to Display Arterial Blood Gas: 2 No Data to Display Venous Blood Gas: 2 No Data to Display Pancreas Panel: 2 No Data to Display Thyroid Panel: 2 No Data to Display Infectious Disease: 2 No Data to Display Blood Cultures: 2 No Data to Display Toxicology Panel: 2 No Data to Display Panel: 2 No Data to Display Anesthesia Assessment and Plan Anesthesia History Personal History: No History of Anesthesia Complications Family History: No Family History of Anesthesia Complications Exercise Tolerance Exercise Tolerance: Metabolic Equivalents>4 Pertinent Negatives Pertinent Negatives: No Symptoms of GERD, No Major Cardiovascular Symptoms or Complaints, No Major Pulmonary Symptoms or Complaints and No History of CVA/TIA Cardiac & Pulmonary Exam Cardiac Exam: Normal S1/S2 Heart Sounds Pulmonary Exam: Clear Bilateral Breath Sounds Implantable Cardiac Device Does patient have a Pacemaker or an ICD?: No Airway Exam Known Difficult Airway: No Mallampati Class: 2 Mouth Opening: Normal (> 3cm) Thyromental Distance: Greater than 3 cm Neck Range of Motion: Full ROM Neck Circumference: Normal Teeth Condition: Normal Dentition ASA Classification ASA Score: ASA 2 Emergency Case?: Yes NPO Status NPO Status: NPO Clears >2 hours, Solids >8 hours Status Status: Confirmed Anesthesia Plan Resuscitation Status: Full Code Anesthesia Technique: Spinal Anesthesia Airway Planned: Natural Airway Monitors Used: Standard Monitors
[2024-01-21] MEDS: ceFAZolin 2 GM/50 ML BAG IVPB (04:22)
--- NOTE | 2024-01-21 04:50 | PLAC_PTH ---
PATIENT: Yvette Self LOC: OBS U#:[id number] AGE/SX: 28/F ROOM: OBS.306 RE01/21/[address]: Ranjana Rothman DO : 1995 BED: A DIS: 01/23/2024 SPEC #: [id number] RECD: 01/23/24 12:35 STATUS: SOUT REQ #: [id number] BONG: 01/21/24 04:[address]: Ranjana Rothman DEPT: Surgical Specimen RECD BY: Isatu Pelayo ENTERED: 01/23/24 12:39 SP TYPE: PLAC OTHR DR: ROSINA SANCHES Tissues: 1 - PLACENTA (3RD TRIMESTER) Procedures: GROSS AND MICRO LEVEL 5 Comments: [id number]
[2024-01-21] MEDS: Lactated Ringers 1,000 ML 200 ML IV (05:00)
[2024-01-21] MEDS: Bupivacaine 0.25% Pres-Free 30 ML VIAL (05:16)
--- NOTE | 2024-01-21 05:36 | W.PM.OBCSECT ---
Date of service: 01/21/24 Time of Service: 05:36 Operative Note Operative Note Delivery Method: Unscheduled STAT: No and Repeat Previous LT Incision: Yes DATE OF PROCEDURE: 01/21/24 PRE-OP DIAGNOSES: at 40 weeks 5 days. Prior c/s. intolerance of labor PROCEDURE: Repeat low-transverse section SURGEON: Ranjana Rothman [place]: [place] Anesthesia: local and spinal Estimated blood loss (mL): 800 Pathology: other (Placenta for exam) Complications: None Patient was transported to: floor Patient's condition: stable Indications: Early labor, no cervical change, intolerance of labor with subtle early and late variable decelerations. Category 2 strip, remote from delivery Findings: Normal-appearing tubes, ovaries, uterus. Delivery of a viable male infant with Apgars of 8 and 9 Procedure Description: After full informed consent was obtained, patient was taken the operating suite with an IV running. She was placed in the seated position and spinal anesthesia administered. She was then placed in the supine position with leftward tilt. She had received Ancef, 2 g and Zithromax, 500 mg prior to surgical incision. Her abdomen and vagina were prepped in the usual fashion. Sousa catheter was inserted for continuous bladder drainage. She was draped appropriately. Anesthesia was tested and noted to be adequate. After a timeout was held, Pfannenstiel skin incision was made through her previous surgical scar. Incision was carried down to the underlying fascia which was incised in the midline and extended laterally. The rectus muscles were identified in the midline and . The peritoneum identified tented up and entered sharply. The peritoneal incision was then extended superiorly and inferiorly and the bladder blade was inserted. The vesicouterine peritoneum was identified and incised creating the bladder flap. A low transverse uterine incision was made with a scalpel. The area was then elevated with Allis clamps to further the incision. The uterine cavity was entered. There was artificial rupture of membranes for clear fluid and the uterine incision was extended bluntly laterally. The vertex was delivered through the incision. There was no evidence of nuchal cord. Shoulders followed with ease. A three-vessel cord was noted clamped x 2 and cut and the was then handed off to the waiting low altitude air defense officer. At this point cord blood sample and cord blood gases were obtained. The placenta was manually expressed from the uterus. The uterus exteriorized and cleared of all clot and debris. The uterine incision was closed initially in a running locked fashion. There was noted to be an area at the right apex of the incision that was not hemostatic and an O'Wheatland stitch was placed. Hemostasis was achieved. A second layer of 0 Monocryl suture in an imbricating fashion was then placed. Incision was inspected and noted to be hemostatic. At this point the uterus was returned to the abdomen and abdomen irrigated with copious amounts of normal saline. Tubes and ovaries had been previously inspected and noted to be normal. Uterine incision was noted to be hemostatic. At this point the fascial incision was closed using 0 Vicryl suture in a running fashion. Subcutaneous tissue irrigated with copious amounts of normal saline and reapproximated with 3-0 Vicryl suture in a simple interrupted fashion. Skin edge was then reapproximated with 4-0 undyed Monocryl and Steri-Strips and a sterile dressing were placed. The uterus was noted to be firm and at the umbilicus postoperatively. Patient had a Sousa catheter in place draining clear yellow urine. She was taken back to the center for the remainder of her recovery. Complications: None apparent Findings: Normal-appearing tubes, ovaries, uterus. Delivery of a viable male infant with Apgars 8 and 9 Pathology: Placenta for examination Fluids: Crystalloid per anesthesia EBL: 800 mL
[2024-01-21] MEDS: Ketorolac 30 MG/ML VIAL 15 MG IVP ×3 (08:21→23:08)
--- NOTE | 2024-01-21 11:42 | W.ANESPOSTOP ---
Postoperative Evaluation Date, Time and Location Date Performed: 01/21/24 Time Performed: 11:42 Patient Location: Obstetrics Vital Signs Most Recent Imported Vital Signs: Most Recent Vital Signs Temp Pulse Resp BP Pulse Ox 36.7 C 58 L 16 104/77 99 01/21/24 08:15 01/21/24 08:15 01/21/24 09:00 01/21/24 08:15 01/21/24 08:15 Assessment Mental Status: Awake (Alert & Oriented to Patient Baseline) Airway and Respiratory Function: Patent airway with normal (patient baseline) respiratory exam Cardiovascular Function: Hemodynamically Stable Hydration Status: Adequately Hydrated Nausea & Vomiting: No Nausea or Vomiting Pain: Pt. Denies Any Pain Peripheral Nerve Block: Patient did not receive a nerve block Postoperative Comments:: Spinal appears to have worn off, she leung snot been out of bed yet. Tolerating oral intake well. Adivsed her to take is slow when she gets out of bed the first time. She does complain if itching all over her body, I told her I would write for low dose narcan for this.
[2024-01-21] MEDS: Naloxone 0.4 MG/ML VIAL IVP ×2 (11:57→20:54)
[2024-01-21] MEDS: Normal Saline Flush 10 ML SYR IVP ×2 (20:54→23:09)
[2024-01-22 01:51] VITALS: BP 113/91; PULSE 68; RESP 17; TEMP 37; O2SAT 99
[2024-01-22] MEDS: Ketorolac 30 MG/ML VIAL 15 MG IVP (06:33)
[2024-01-22 06:46] LABS: Abs Immature Grans 0.07 10^3/uL (0.0-0.06); Absolute Basophil Count 0.02 10^3/uL (0.0-0.2); Absolute Eosinophil Count 0.02 10^3/uL (0.0-0.7); Absolute Lymphocyte Count 1.62 10^3/uL (1.2-3.4); Absolute Monocyte Count 0.88 10^3/uL (0.1-0.8); Basophils % 0.2 %; Eosinophils % 0.2 %; HGB 10.3 g/dL (11.2-15.7); Immature Grans % 0.6 %; MCH 27.2 pg (27.0-33.0); MCHC 32.2 % (32.0-36.0); MCV 85 fL (80-95); MPV 8.4 fL (8.0-11.0); Monocytes % 7.6 %; Neutrophils % 77.4 %; Platelet Count 194 10^3/uL (130-400); RBC 3.78 10^6/uL (3.93-5.22); RDW 12.5 % (11.7-14.6); RDW-SD 38.3 fL; WBC 11.59 10^3/uL (4.4-10.8)
[2024-01-22 06:49] LABS: Absolute Neutrophil Count 8.97 10^3/uL (1.2-6.7)
--- NOTE | 2024-01-22 08:04 | OBPPV_ITS ---
Date of service: 01/22/24 Time of Service: 08:04 Assessment and Plan Assessment and plan (1) Status post repeat low transverse section: Status: Acute Assessment and plan: Postop day #1 status post repeat low-transverse section. Doing well. Ambulating, tolerating regular diet and oral pain medication. Stable vital signs. Normal hemoglobin. [place] circumcision performed at patient's request today. Anticipate discharge home 01/23/2024 Subjective Subjective baby status: Doing well and Nursing well feeding status: Exclusively breast feeding Exam Physical Exam Vital signs: Temp Pulse Resp BP Pulse Ox 98.6 F 68 17 113/91 H 99 01/22/24 01:51 01/22/24 01:51 01/22/24 01:51 01/22/24 01:51 01/22/24 01:51 Vital Signs Reviewed: Yes HEENT Exam HEENT Exam: Normal Neck Exam Neck Exam: Normal Respiratory Exam Respiratory Exam: Normal Cardiovascular Exam Cardiovascular Exam: Normal Abdominal Exam Comments: Soft, non-tender, incision dressed. Fundal Exam Fundus: Below Umbilicus and Firm Extremities Exam Extremity Exam: Normal; negative Calf Tenderness Skin Exam Skin Exam: Normal Results Hemoglobin/Hematocrit: Hgb 10.3 g/dL (11.2-15.7) L 01/22/24 06:34 Hct 32.0 % (36.0-46.0) L 01/22/24 06:34 Abnormal Lab Findings: Abnormal Labs 01/21/24 01/22/24 01:22 06:34 WBC 11.59 H RBC 3.78 L Hgb 10.3 L Hct 35.2 L 32.0 L Absolute Neutrophils 8.97 H Absolute Monocytes 0.88 H
[2024-01-22 08:35] VITALS: BP 120/88; PULSE 74; RESP 18; TEMP 36.8; O2SAT 99
[2024-01-22 12:00] VITALS: BP 117/84; PULSE 68; RESP 18
[2024-01-22] MEDS: Acetaminophen 325 MG TAB 650 MG PO (14:35)
[2024-01-22] MEDS: Ibuprofen 600 MG TAB PO (16:15)
[2024-01-22 20:05] VITALS: BP 103/65; PULSE 86; RESP 18; TEMP 36.8
[2024-01-23 01:00] VITALS: BP 140/10; PULSE 89; RESP 18; TEMP 36.8; O2SAT 98
[2024-01-23] MEDS: Ibuprofen 600 MG TAB PO ×2 (01:12→08:00)
[2024-01-23] MEDS: oxyCODONE 5 mg/Acetaminophen 325 mg TAB PO ×3 (01:12→10:23)
[2024-01-23 02:00] VITALS: BP 137/91
[2024-01-23 06:10] VITALS: BP 111/74
[2024-01-23] MEDS: Docusate Sodium 100 MG CAP PO (08:00)
--- NOTE | 2024-01-23 08:46 | W.PM.OBPNV1 ---
Date of service: 01/23/24 Time of Service: 08:47 Assessment and Plan Assessment and plan (1) Status post repeat low transverse section: Assessment and plan: Pt doing well POD#2 s/p RCS. She desires Mirena IUD for contraception. Will return to office in 1wk for incision check. Subjective Subjective Narrative: Pt is feeling well and desires D/C home. Minimal lochia. Pain controlled after she restarted pain meds overnight. Tolerating regular diet with no n/v. +flatus, no BM yet. Breast-feeding going well. Exam Physical Exam Vital signs: Temp Pulse Resp BP Pulse Ox 98.2 F 89 18 111/74 98 01/23/24 01:00 01/23/24 01:00 01/23/24 01:00 01/23/24 06:10 01/23/24 01:00 Vital Signs Reviewed: Yes Constitutional Constitutional: no acute distress and cooperative Detailed HEENT Exam Head: Present normocephalic and atraumatic Respiratory Exam Respiratory Exam: Normal Abdominal Exam Abdomen: Tender (mildly) Comments: Incision clean, dry, intact Fundal Exam Fundus: Below Umbilicus and Firm Extremities Exam Extremity Exam: Edema (trace) Detailed Neurological Exam Neurological: Present alert, oriented X3 and CN II-XII intact Results Hemoglobin/Hematocrit: Hgb 10.3 g/dL (11.2-15.7) L 01/22/24 06:34 Hct 32.0 % (36.0-46.0) L 01/22/24 06:34 Abnormal Lab Findings: Abnormal Labs 01/21/24 01/22/24 01:22 06:34 WBC 11.59 H RBC 3.78 L Hgb 10.3 L Hct 35.2 L 32.0 L Absolute Neutrophils 8.97 H Absolute Monocytes 0.88 H
--- NOTE | 2024-01-23 08:49 | W.PM.OBDISCH ---
Date of service: 01/23/24 Time of Service: 08:49 DS: Diagnosis Discharge Diagnosis (1) Status post repeat low transverse section: Discharge Plan Disposition Patient Disposition: Home Condition: Stable Discharge Details Reason For Visit: Possible Labor Admit Date/Time: 01/21/24 01:14 Admit Provider: Ranjana Rothman Attending Provider: Ranjana Rothman Primary Care Provider: ROSINA SANCHES Hospital Course Hospital Course: Pt admitted in early labor but had a Cat 2 FHT remote from delivery and therefore underwent an uncomplicated C section. She had a routine post-op course and was discharged on POD#2. Home Meds and New Rx's Prescriptions: New acetaminophen 325 mg Tablet 650 mg PO Q4H PRN PRNQty: 0 0RF docusate sodium [Colace] 100 mg Capsule 100 mg PO BID PRN PRNQty: 30 0RF oxycodone-acetaminophen 5-325 mg Tablet 1 tab PO Q4H PRN PRNQty: 5 0RF ibuprofen 600 mg Tablet 600 mg PO Q6H PRN PRNQty: 90 0RF Continued One-A-Day -1 27 mg iron- 800 mcg-235 mg capsule PO multivitamin [Daily Multi-Vitamin] Tablet 1 tab PO DAILY calcium carbonate [Calcium 600] 600 mg calcium (1,500 mg) tablet 500 mg PO BID cholecalciferol (vitamin D3) 50 mcg (2,000 unit) capsule 50 mcg PO DAILY Qty: 60 5RF Discharge Instructions Stand Alone Forms: BC Instructions, BC Discharge Instruc Activity:: No lifting >20lbs Equipment/Supplies:: No Equipment Needed Diet:: As Tolerated Discharge Orders Discharge Orders: Discharge Order (Routine); Ordered 01/23/24 Ordered By: Asia Soriano OB:DS Summary Contraception Discussed Contraception Discussed: Yes Contraceptive Plan: IUD, Gender-Baby A: Male weight: 8 lb 6.747 oz Status at Discharge Functional status at discharge: independent ambulation Overall status at discharge: patient is back to baseline Mental Status: mental status grossly normal Speech and Movement: speech and movement normal Mood: congruent mood Affect: normal affect Quality:SDOH Health Related Social Needs: No Data to Display Exam Physical Exam Vital signs: Temp Pulse Resp BP Pulse Ox 98.2 F 89 18 111/74 98 01/23/24 01:00 01/23/24 01:00 01/23/24 01:00 01/23/24 06:10 01/23/24 01:00 [facility] All Active Problems (Updated 01/23/24 @ 08:48 by Asia Soriano MD) Sickle cell trait (Acute) Medical History (Updated 01/23/24 @ 08:48 by Asia Soriano MD) Abnormal labor Surgical History (Updated 01/23/24 @ 08:48 by Asia Soriano MD) History of gastric bypass Status post repeat low transverse section Repeat low-transverse section 01/21/2024. Male infant Chosen H/O right knee surgery H/O dilation and curettage Bariatric surgery status Family History (System 10/19/23 @ 15:17 by Denise Parr) Father Diabetes adopted Social History (System 10/19/23 @ 15:17 by Denise Parr) Smoking/Tobacco Use Status: Current-Occasional Smoking risk assessment performed?: Yes Alcohol Intake: never Drug use: Never Substance use type: marijuana Adopted: Yes (limited knowledge of family history) Housing: apartment Do you feel safe at home: Yes Do you feel safe in your relationship?: Yes History History 3 Para 1 Hx # Term Pregnancies 1 Multiple births 0 Hx # Pregnancies 0 Ectopic pregnancies 0 AB induced 0 Hx Number of Living Children 1 AB spontaneous 1 Past Pregnancies Del. Date GA/Weeks # Preg Succ Route Wgt Sex Labor Lgth Anesthesia Location [facility] 11/26/15 40 No Yes 8 lb 5 oz Female [facility] Delivery Date: 11/26/15 Last Updated by: Martha Mims CNM IOL due to post dates, malposition at 9-10 cms. tongue- tied DS: Data Vitals/I&O Vitals and I&O: Vital Signs Temperature 98.2 F 01/23/24 01:00 Temperature Source Oral 01/23/24 01:00 Pulse 89 01/23/24 01:00 Pulse Rhythm Regular 01/23/24 08:01 Respiratory Rate 18 01/23/24 01:00 Respiratory Depth Normal 01/23/24 08:01 Blood Pressure 111/74 01/23/24 06:10 Blood Pressure Mean 86 01/23/24 06:10 Pulse Oximetry 98 01/23/24 01:00 Oxygen Delivery Method Room Air 01/21/24 01:37 Oxygen Flow Rate 0 01/21/24 01:37 Pain Level 4 01/22/24 16:15 Comment ot has relief from her motrin and percocet 01/23/24 02:00 Intake & Output 01/22/24 01/22/24 01/23/24 11:59 23:59 11:59 Output Total 400 / 400 Balance -400 / -400 Output: Urine 400 / 400 Other: Urine Color Yellow Pale Pale Comment Removed by prior shift/nurse.
== END 2024-01-23 10:25 | disposition home or self-care (01) | DRG 788 ==
PROVIDERS: Admitting Provider Obstetrics & Gynecology; PCP Physician Assistant; Visit Provider Obstetrics & Gynecology
PROC: 10D00Z1 Extraction of Products of Conception, Low, Open Approach (ICD-10-PCS; CPT 59514; principal; 2024-01-21 03:45)
DX: O34.211 Maternal care for low transverse scar from previous cesarean delivery (principal); Z98.84 Bariatric surgery status; Z37.0 Single live birth; Z3A.40 40 weeks gestation of pregnancy; O76 Abnormality in fetal heart rate and rhythm complicating labor and delivery; O66.41 Failed attempted vaginal birth after previous cesarean delivery; O48.0 Post-term pregnancy; O99.02 Anemia complicating childbirth; D57.3 Sickle-cell trait; O99.334 Smoking (tobacco) complicating childbirth; F17.210 Nicotine dependence, cigarettes, uncomplicated; O62.8 Other abnormalities of forces of labor
CPT/HCPCS: 59620; 36415; 82803; 85027; 86850; 86900; 86901; 85025; 88307; J0131; J0456; J0665; J0690; J1885; J2274; J2310; J2405; J3010

== ENCOUNTER 2024-03-01 11:26 | Outpatient (REF) | payer BC, SELFPAY ==
[2024-03-02 13:07] LABS: Chlamydia Result Negative (Negative); GC Result Negative (Negative)
== END 2024-03-01 11:27 | disposition home or self-care (01) ==
LOC: LBN 11:26
PROVIDERS: PCP Physician Assistant; Visit Provider Obstetrics & Gynecology
DX: Z30.9 Encounter for contraceptive management, unspecified (principal); R10.2 Pelvic and perineal pain; Z39.2 Encounter for routine postpartum follow-up
CPT/HCPCS: 87491; 87591